=== PATIENT | male | born 1960 ===

== ENCOUNTER 2020-09-12 07:56 | Emergency (ER) | payer BC, OTHER ==
[~2020-09-12] VITALS: Ht 175.3 cm; Wt 95.3 kg
[~2020-09-12 07:56] MED LIST: COLESTID1 GM PO; CYCLOBENZAPRINE10 MG PO; DICLOFENAC GEL 1% TOP; FAMOTIDINE20 MG PO; FLOMAX 0.4 MG0.4 MG PO; FLUTICASONE SPRAY; HYDROCHLOROTH12.5 MG PO; IBUPROFEN800 MG PO; LORTAB 7.5-3251 EACH PO; LYRICA200 MG PO; NORCO 7.5-3251 EACH PO; ONCE DAILY1 EACH PO; POTASSIUM CITRATE PO; PROTONIX40 MG PO; TRAZODONE HCL150 MG PO; ZOCOR10 MG PO
[2020-09-12 09:38] LABS: RED BLOOD COUNT 5.38 M/UL (4.20-5.50); WHITE BLOOD COUNT 10.6 K/UL (4.5-11.0)
[2020-09-12 10:10] LABS: BUN/CREATININE RATIO 22 (0-10)
[2020-09-12] MEDS ORDERED: DELSYM30 MG/5 ML PO (12:51)
== END 2020-09-12 13:05 | disposition home or self-care (01) ==
LOC: ER1 07:56
PROVIDERS: Physician Assistant Medical
DX: Z23 Encounter for immunization (principal); U07.1 COVID-19; J44.9 Chronic obstructive pulmonary disease, unspecified; I10 Essential (primary) hypertension; F17.210 Nicotine dependence, cigarettes, uncomplicated
CPT/HCPCS: 71045; 80053; 82550; 82553; 83605; 83874; 84484; 85025; 85379; 93005; 99285; M0239; Q9967

== ENCOUNTER 2020-09-28 07:45 | Emergency (ER) | payer BC, OTHER ==
[~2020-09-28 07:45] MED LIST changes: +DELSYM30 MG/5 ML PO
[2020-09-28 09:08] LABS: HEMOGLOBIN 16.3 gm/dl (14.0-17.5); RED BLOOD COUNT 5.16 M/UL (4.20-5.50); WHITE BLOOD COUNT 6.5 K/UL (4.5-11.0)
[2020-09-28 09:35] LABS: BUN/CREATININE RATIO 15 (0-10)
== END 2020-09-28 13:59 | disposition home or self-care (01) ==
LOC: ER1 07:45
PROVIDERS: Nurse Practitioner
DX: U07.1 COVID-19 (principal); K21.9 Gastro-esophageal reflux disease without esophagitis; I10 Essential (primary) hypertension; F17.210 Nicotine dependence, cigarettes, uncomplicated; Z87.442 Personal history of urinary calculi; Z79.899 Other long term (current) drug therapy; Z86.16 Personal history of COVID-19; Z90.49 Acquired absence of other specified parts of digestive tract
CPT/HCPCS: 71045; 80053; 82550; 82553; 83605; 83735; 83880; 84484; 85025; 85379; 87040; 93005; 99285; Q9967